=== PATIENT | male | born 1995 | race Caucasian/White ===

== ENCOUNTER 2018-03-09 13:33 | Day surgery (SDC) | payer OTHER ==
[~2018-03-09 13:33] MED LIST: CEFAZOLIN 1 GM INJ; LIDOCAINE 2% (SDV) 5 ML INJ
[2018-03-09] MEDS ORDERED: OXYCODONE/ACETAMINOPHEN (5/325) TAB PO ×2 (15:30)
[2018-03-09] MEDS ORDERED: HYDROmorphONE 1 MG/5 ML IV SYRINGE IV ×3 (15:30)
[2018-03-09] MEDS ORDERED: LABETALOL HCL 20MG INJ IV (15:30)
[2018-03-09] MEDS ORDERED: ALBUTEROL 0.083% (NEB) 2.5 MG/3 ML AMP HHN (15:30)
[2018-03-09] MEDS ORDERED: MIDAZOLAM 1 MG/ML 2 ML INJ IV (15:30)
[2018-03-09] MEDS ORDERED: EPHEDrine SULFATE 50 MG/5 ML SYG IV (15:30)
[2018-03-09] MEDS ORDERED: FENTAnyl 50 MCG/ML VIAL IV ×3 (15:30)
[2018-03-09] MEDS ORDERED: METOCLOPRAMIDE 10 MG INJ IV (15:30)
[2018-03-09] MEDS ORDERED: KETOROLAC 30 MG INJ IV (15:30)
[2018-03-09] MEDS ORDERED: hydrALAzine 20 MG INJ IV (15:30)
[2018-03-09] MEDS ORDERED: DIPHENHYDRAMINE 50 MG INJ IV (15:30)
[2018-03-09] MEDS ORDERED: BUPIVACAINE 0.5% (SDV) 30 ML INJ (16:32)
[2018-03-09] MEDS ORDERED: LIDOCAINE 1% (MPF) 30 ML INJ (16:32)
[2018-03-09] MEDS ORDERED: FENTAnyl 50 MCG/ML VIAL (16:49)
[2018-03-09] MEDS ORDERED: PROPOFOL 20 ML (17:28)
[2018-03-09] MEDS ORDERED: ROCURONIUM 50 MG INJ (17:28)
[2018-03-09] MEDS ORDERED: ROPIVACAINE 0.5 % 30 ML VIAL (17:29)
[2018-03-09] MEDS ORDERED: SUGAMMADEX SODIUM 200 MG/2 ML VIAL IV (17:44)
[2018-03-09] MEDS: MEPERIDINE 25 MG INJ IV (18:05)
[2018-03-09] MEDS: ONDANSETRON 4 MG INJ IV (19:07)
== END 2018-03-09 19:14 | disposition home or self-care (01) ==
LOC: SDS 13:33
DX: S62.324D Displaced fracture of shaft of fourth metacarpal bone, right hand, subsequent encounter for fracture with routine healing (principal); X58.XXXD Exposure to other specified factors, subsequent encounter
CPT/HCPCS: 26615; 73140